=== PATIENT | male | born 2000 | race Caucasian/White ===

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

== ENCOUNTER 2019-08-01 07:45 | Emergency (ER) | payer BC, MEDICAID ==
[~2019-08-01] VITALS: Ht 175.3 cm; Wt 74.8 kg
[2019-08-01 08:34] VITALS: BP_SYST 138
[2019-08-01 08:42] VITALS: BP_SYST 138
== END 2019-08-01 08:42 | disposition home or self-care (01) ==
LOC: SED 07:45
DX: F19.10 Other psychoactive substance abuse, uncomplicated (principal)
CPT/HCPCS: 99281